=== PATIENT | female | born 1960 | race Caucasian/White ===

== ENCOUNTER 2020-10-01 08:34 | Day surgery (SDC) | payer OTHER ==
[~2020-10-01] VITALS: Ht 154.9 cm; Wt 62.1 kg
[~2020-10-01 08:34] MED LIST: AMIT10 PO; CRUTCH USE; CYCL10 PO; DESV50 PO; HYDACE10B PO; HYDACE5 PO; NAPR500 PO
--- NOTE | 2020-10-01 09:47 | NUR ---
Ambulatory in Day SurgeryPatient states colon prep results clear. History, Chart, Medications and Allergies reviewed before start of procedure.Lungs clear T/O to Auscultation. Patient confirms NPO status and agrees with scheduled surgery. Pre-Op teaching done. Pt verbalizes understanding. Patient States Post-Procedure ride home has been arranged.
--- NOTE | 2020-10-01 09:58 | NUR ---
10/01/20 0958 Arnie Zuleta History, Chart, Medications and Allergies reviewed before start of procedure. MONITOR INTACT WITH CONTINUOUS PULSE OXIMETRY AND INTERMITTENT BP. 3-LEAD EKG REVIEWED WITH PHYSICIAN PRIOR TO START OF PROCEDURE. O2 VIA N/C INTACT THROUGHOUT SEDATION/PROCEDURE. PATIENT DETERMINED TO BE ASA APPROPRIATE FOR PROPOFOL SEDATION PRIOR TO START OF PROCEDURE BY DR. OLIVAS.
--- NOTE | 2020-10-01 11:21 | NUR ---
Patient up to Ambulate independently. Gait steady. Discharge instructions reviewed with patient. Patient verbalizes understanding. Copy given to patient to take home. Discharged via wheelchair to private car for ride home.
== END 2020-10-01 23:05 | disposition home or self-care (01) ==
LOC: ORSCMMR 08:34 → ORD 09:30 → ORSCMMR 09:30
PROVIDERS: Internal Medicine Gastroenterology
PROC: 0DBM8ZX Excision of Descending Colon, Via Natural or Artificial Opening Endoscopic, Diagnostic (ICD-10-PCS; principal; 2020-10-01 09:30)
PROC: 0DBN8ZX Excision of Sigmoid Colon, Via Natural or Artificial Opening Endoscopic, Diagnostic (ICD-10-PCS; principal; 2020-10-01 09:30)
DX: Z12.11 Encounter for screening for malignant neoplasm of colon (principal); K63.5 Polyp of colon; Z86.010 Personal history of colon polyps; J44.9 Chronic obstructive pulmonary disease, unspecified; F32.9 Major depressive disorder, single episode, unspecified; Z79.899 Other long term (current) drug therapy; F17.210 Nicotine dependence, cigarettes, uncomplicated
CPT/HCPCS: 88305; J2250; J2704; J7120

== ENCOUNTER → 2022-12-01 | Outpatient (CLI) | payer OTHER | LOC: LAB 11:40 → LAB SHORT 11:40 | DX: R30.0 Dysuria (principal) | CPT/HCPCS: 87086 ==

== ENCOUNTER 2023-04-19 23:30 | Observation (INO) | payer OTHER ==
[~2023-04-19] VITALS: Ht 154.9 cm; Wt 49.9 kg
[2023-04-20] VITALS (14 sets, daily range): BP systolic 89–132; BP diastolic 58–90
[2023-04-20 01:21] LABS: BASOPHILS ABSOLUTE AUTO 0.07 K/mm3 (0.00-0.23); BASOPHILS PERCENT AUTO 1 % (0-2); EOSINOPHILS ABSOLUTE AUTO 0.29 K/mm3 (0.00-0.68); EOSINOPHILS PERCENT AUTO 2 % (0-6); Hematocrit 42.9 % (33.0-51.0); Hemoglobin 14.7 g/dL (11.5-16.0); IMMATURE GRAN ABSOLUTE AUTO 0.04 K/mm3 (0.00-0.10); IMMATURE GRAN PERCENT AUTO 0 % (0-1); LYMPHOCYTES ABSOLUTE AUTO 1.98 K/mm3 (0.84-5.20); LYMPHOCYTES PERCENT AUTO 14 % (21-46); MONOCYTES ABSOLUTE AUTO 1.23 K/mm3 (0.16-1.47); MONOCYTES PERCENT AUTO 9 % (4-13); Mean Corpuscular HGB 30.5 pg (26.0-34.0); Mean Corpuscular HGB Conc 34.3 g/dL (31.5-36.5); Mean Corpuscular Volume 89 fL (80-100); Mean Platelet Volume 10.2 fL (9.1-12.4); NEUTROPHILS ABSOLUTE AUTO 10.22 K/mm3 (1.96-9.15); NEUTROPHILS PERCENT AUTO 74 % (41-73); Platelet Count 221 K/mm3 (150-400); RDW Coefficient Variation 12.8 % (11.7-14.2); RDW Standard Deviation 41.8 fL (35.1-46.3); Red Blood Cell Count 4.82 M/mm3 (3.80-5.20); White Blood Cell Count 13.83 K/mm3 (4.00-11.30)
[2023-04-20 01:39] LABS: Albumin, Blood 3.7 g/dL (3.4-5.0); Albumin/Globulin Ratio 1.1 (0.8-1.8); Bilirubin, Total 0.2 mg/dL (0.1-1.0); Bun/Creatinine Ratio 18.6 (12.0-20.0); Calcium, Blood 9.2 mg/dL (8.5-10.1); Creatinine, Blood 0.7 mg/dL (0.40-1.00); Globulin, Blood 3.5 g/dL (2.2-4.0); Potassium, Blood 4.1 mmol/L (3.5-5.5); Total Protein, Blood 7.2 g/dL (6.4-8.2)
[2023-04-20 03:01] LABS: International Normalized Ratio 0.96; Prothrombin Time Results 10.1 Sec (9.7-11.5)
[2023-04-20] MEDS ORDERED: HYDHCL25 PO (03:02)
[2023-04-20] MEDS ORDERED: BUPR150ER PO (03:03)
[2023-04-20] MEDS ORDERED: OMEP20ER PO (03:06)
[2023-04-20] MEDS ORDERED: PRAMIPEXOLE DI0.5 M1 PO (03:07)
[2023-04-20] MEDS ORDERED: PANT40 PO (03:08)
[2023-04-20] MEDS ORDERED: VITAMIN D32000 UNI1 PO (03:09)
[2023-04-20] MEDS ORDERED: LORA10ER PO (03:10)
--- NOTE | 2023-04-20 05:37 | NUR ---
SHIFT SUMMARY 62 YR F ADMITTED FROM THE ED THIS SHIFT FOR ACUTE CHOLECYSTITIS. FULL CODE. PT IS INDEPENDANT IN THE ROOM AND A&O X 4. PT STATES ABDOMINAL PAIN BUT REFUSED PAIN MEDS. SHE STATES SHE WILL ONLY TAKE THEM IF SHE REALLY NEEDS TO AND SHE WILL LET US KNOW IF SHE DOES. PT IS CURRENTLY NPO IN ANTICIPATION OF SURGERY TODAY. SHE IS A VERY PLEASANT WOMAN AND IS COOPERATIVE WITH CARE.
[2023-04-20] MEDS ORDERED: FLUTICASONE PRO12 G1 INH (12:59)
[2023-04-20] MEDS ORDERED: CALCIUM CARBON500 M1 PO (12:59)
[2023-04-20] MEDS ORDERED: NICO21TP TOP (13:00)
[2023-04-20] MEDS ORDERED: NICORETTE4 M1 BC (13:00)
[2023-04-20] MEDS ORDERED: NAPROXEN500 MG PO (13:00)
--- NOTE | 2023-04-20 13:45 | NUR ---
04/20/23 1345 Ronny Newby PT ON SCHEDULED ANTIBIOTICS AND RECIEVED PRIOR TO ARRIVAL TO OR.
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
--- NOTE | 2023-04-20 19:49 | NUR ---
SHIFT SUMMARY; PATIENT ARRIVED BACK FROM SURGERY BEFORE 1500. SHE IS AO X 4. DENIES ANY PAIN OR DISCOMFORT. SHE AMBULATES TO BED FROM [facility] WITH [facility]. HER VITAL SIGNS ARE STABLE. NO ACUTE CHANGES NOTED. PATIENT HAS PLEASANT AFFECT IS COOPERATIVE WITH CARE. USES CALL LIGHT APPROPRIATELY.
[2023-04-21 00:24] VITALS: BP 96/54
--- NOTE | 2023-04-21 04:19 | NUR ---
SHIFT SUMMARY ROBOTIC ASSIST LAP VIRA PERFORMED ON 04/20/23. FULL CODE. IV ANTIB RX ARE SCHEDULED. SHE IS HOPEFUL FOR DC TODAY. SHE IS STANDBY ASSIST TO INDEPENDENT IN ROOM. NS INFUSING @ 100 ML/HR. A&O X4. SHE IS ON RA. SHE DENIES PAIN THIS SHIFT. SHE STATES SHE IS FEELING FANTASTIC NOW
[2023-04-21 05:13] VITALS: BP 112/58
[2023-04-21 07:39] VITALS: BP 124/69
--- NOTE | 2023-04-21 11:25 | NUR ---
Patient is lying bed and alert. She immediately explains about the success of her surgery and the plan to D/C today. We then discuss her spiritual care plan and some possible paths for reonciliation with her family members. I provide therapeutic listening and prayer. Patient responded well and showed signs of being more hopeful.
[2023-04-21] MEDS ORDERED: CEPH500 PO (11:37)
[2023-04-21] MEDS ORDERED: HYDR1TAB94 PO (11:39)
== END 2023-04-21 13:08 | disposition home or self-care (01) ==
LOC: ER 23:30 → MEDS 23:31 → SURS 23:31 → MEDS 04-20 03:51 → ENPENDDIS 04-21 12:47 → MEDS 04-21 13:08
PROVIDERS: Emergency Medicine; Surgery; ADMIT Internal Medicine
PROC: 0FT44ZZ Resection of Gallbladder, Percutaneous Endoscopic Approach (ICD-10-PCS; principal; 2023-04-20 13:00)
DX: K80.12 Calculus of gallbladder with acute and chronic cholecystitis without obstruction (principal); J44.9 Chronic obstructive pulmonary disease, unspecified; F17.200 Nicotine dependence, unspecified, uncomplicated; D72.829 Elevated white blood cell count, unspecified; I10 Essential (primary) hypertension; F32.A Depression, unspecified; G25.81 Restless legs syndrome; Z91.041 Radiographic dye allergy status
CPT/HCPCS: 36415; 74177; 76705; 80053; 85025; 85610; 87040; 88304; 96365; 96366; 96367; 96374-59; 96375; 96376; 99285-25; A9270; G0378; J0696; J1100; J1170; J1885; J2250; J2371; J2405; J2704; J2765; J2930; J3010; J7030; J7120; Q9967

== ENCOUNTER → 2025-04-18 | Outpatient (CLI) | payer OTHER ==
[~2025-04-18] MED LIST changes: +BUPR150ER PO; +CALCIUM CARBON500 M1 PO; +CEPH500 PO; +FLUTICASONE PRO12 G1 INH; +HYDHCL25 PO; +HYDR1TAB94 PO; +LORA10ER PO; +NAPROXEN500 MG PO; +NICO21TP TOP; +NICORETTE4 M1 BC; +OMEP20ER PO; +PANT40 PO; +PRAMIPEXOLE DI0.5 M1 PO; +VITAMIN D32000 UNI1 PO
== END ==
LOC: LAB SHORT 11:00 → LAB 11:00
DX: R33.9 Retention of urine, unspecified (principal)
CPT/HCPCS: 87077; 87086; 87186